=== PATIENT | female | born 1935 | race Caucasian/White ===

== ENCOUNTER 2018-02-04 15:56 | Emergency (ER) | payer OTHER ==
[~2018-02-04] VITALS: Ht 139.7 cm; Wt 54.2 kg
[2018-02-04 17:01] LABS: HEMATOCRIT 40.1 % (36.0-46.0); HEMOGLOBIN 13.8 G/DL (11.9-15.5); MCH 35.5 PG (29.0-34.0); MCHC 34.4 G/DL (30.0-36.0); MCV 103.1 FL (83-99); PLATELET COUNT 169 K/uL (156-360); RBC DIS.WIDTH-CV 13.1 % (11.8-14.6); RBC DIS.WIDTH-SD 49.1 % (39-53); RED BLOOD COUNT 3.89 M/uL (3.80-5.20); WHITE BLOOD COUNT 4.1 K/uL (4.1-10.2)
[2018-02-04 17:10] LABS: CHLORIDE 103 mEq/L (99-109); POTASSIUM 4.2 mEq/L (3.7-5.4); SODIUM 140 mEq/L (136-147)
[2018-02-04 17:12] LABS: GLUCOSE 138 mg/dL (70-99); TOTAL PROTEIN 6.1 g/dL (6.4-8.3)
[2018-02-04 17:14] LABS: TOTAL BILIRUBIN 0.3 mg/dL (0.0-1.0)
[2018-02-04 17:15] LABS: ALKALINE PHOSPHATASE 87 IU/L (3-129)
[2018-02-04 17:16] LABS: CREATININE 0.7 mg/dL (0.6-1.3); GFR ESTIMATE (CALCULATED) > 59 mL/min/
[2018-02-04 17:17] LABS: AST (GOT) 20 IU/L (2-34); UREA NITROGEN (BUN) 16 mg/dL (9-23)
[2018-02-04 17:19] LABS: ALT (GPT) 17 IU/L (3-49)
[2018-02-04 17:22] LABS: TROP-I INTERPRETATION NEGATIVE; TROPONIN-I < 0.01 ng/mL (0.0-0.30)
[2018-02-04 17:47] LABS: APPEARANCE CLEAR ((CLEAR)); BILIRUBIN NEGATIVE; BLOOD NEGATIVE; COLOR YELLOW ((YELLOW)); GLUCOSE (STRIP) NEGATIVE; KETONES NEGATIVE; LEUKOCYTES TRACE; NITRITE NEGATIVE; PROTEIN (STRIP) NEGATIVE; SPECIFIC GRAVITY 1.017 (1.000-1.030); UROBILINOGEN 0.2 MG/DL (0.2-1.0)
[2018-02-04 17:54] LABS: BACTERIA NONE SEEN /HPF; EPITHELIAL CELLS RARE /HPF; HYALINE CASTS 0-5 /LPF; MUCUS TRACE /LPF; RED BLOOD CELLS 0-5 /HPF (0-5); WHITE BLOOD CELLS 0-5 /HPF (0-5)
[2018-02-04 21:06] VITALS: BP 134/74
== END 2018-02-04 21:11 | disposition home or self-care (01) ==
LOC: EME 15:56
PROVIDERS: Emergency Medicine
DX: S09.90XA Unspecified injury of head, initial encounter (principal); W18.30XA Fall on same level, unspecified, initial encounter; Y92.099 Unspecified place in other non-institutional residence as the place of occurrence of the external cause; E78.5 Hyperlipidemia, unspecified; I25.2 Old myocardial infarction; F32.9 Major depressive disorder, single episode, unspecified; Z88.0 Allergy status to penicillin; Z88.1 Allergy status to other antibiotic agents; Z90.710 Acquired absence of both cervix and uterus; Z90.49 Acquired absence of other specified parts of digestive tract
CPT/HCPCS: 70450; 72125; 80053; 81003; 83605; 84484; 85027; 87086; 93005; 99281; 99285